=== PATIENT | male | born 1990 | race Caucasian/White ===

== ENCOUNTER 2018-01-22 00:34 | Emergency (ER) | payer MEDICAID ==
[~2018-01-22] VITALS: Ht 172.7 cm; Wt 68.0 kg
[2018-01-22 00:38] VITALS: BP 116/51
== END 2018-01-22 03:07 | disposition left against medical advice (07) ==
LOC: ER 00:34
DX: F41.0 Panic disorder [episodic paroxysmal anxiety] (principal); Z53.21 Procedure and treatment not carried out due to patient leaving prior to being seen by health care provider